=== PATIENT | male | born 1950 | race Caucasian/White ===

== ENCOUNTER 2016-08-09 16:23 | Inpatient (IN) | payer MEDICARE, MEDICAID ==
[~2016-08-09] VITALS: Ht 157.5 cm; Wt 46.7 kg
[~2016-08-09 16:23] MED LIST: DIVA500T52 PO; OLAN5TAB2 PO; OMEP20 PO; VITAD1000 PO
[2016-08-09 16:57] LABS: BASOPHILS % (AUTO) 1.2 % (0.0-2.0); HEMATOCRIT 42.3 % (41-53); HEMOGLOBIN 13.8 g/dL (13.5-17.5); LYMPHOCYTES # (AUTO) 2.6 K/uL (1.0-4.8); LYMPHOCYTES % (AUTO) 48.2 % (22.0-44.0); MEAN CORPUSCULAR HEMOGLOBIN 29.7 pg (26.0-34.0); MEAN CORPUSCULAR HGB CONC 32.7 G/dL (31.0-37.0); MEAN CORPUSCULAR VOLUME 91 fL (80-100); MONOCYTES # (AUTO) 0.5 K/uL (0.1-1.0); NEUTROPHILS % (AUTO) 36.6 % (40.0-70.0); PLATELET COUNT (AUTO) 297 K/uL (150-450); RED BLOOD CELL COUNT(AUTO) 4.65 MIL/uL (4.50-5.90); RED CELL DISTRIBUTION WIDTH 14.9 % (11.5-14.5); WHITE BLOOD COUNT (AUTO) 5.4 K/uL (4.5-11.0)
[2016-08-09 17:12] LABS: ANION GAP 12 mmol/L (8-16); CALCIUM, TOTAL 9.3 mg/dL (8.8-10.5); CARBON DIOXIDE 26 mmol/L (22-29); CHLORIDE 104 mmol/L (98-107); CREATININE 0.69 mg/dL (0.60-1.30); GLOMERULAR FILTR. RATE CALC > 60 mL/min (>60); POTASSIUM 3.7 mmol/L (3.5-5.1); SODIUM SERUM 142 mmol/L (136-145); UREA NITROGEN, BLOOD 10 mg/dL (7-18)
[2016-08-09 17:15] LABS: ALANINE AMINOTRANSFERASE 31 U/L (12-78); ALBUMIN 3.8 g/dL (3.4-5.0); ASPARTATE AMINOTRANSFERASE 21 U/L (15-37); BILIRUBIN,TOTAL 0.3 mg/dL (0.1-1.0); TOTAL PROTEIN, SERUM 7.7 g/dL (6.4-8.2)
[2016-08-09 17:26] LABS: APPEARANCE,URINE CLEAR (CLEAR); GLUCOSE, URINE (UA) NEGATIVE (NEGATIVE); KETONES,URINE NEGATIVE (NEGATIVE); LEUKOCYTE ESTERASE ,URINE NEGATIVE (NEGATIVE); PH,URINE 6.5 (5.0-8.0); PROTEIN,URINE NEGATIVE (NEGATIVE)
[2016-08-09 17:27] LABS: ADD UA MICROSCOPIC NO; OCCULT BLOOD,URINE NEGATIVE (NEGATIVE)
[2016-08-09 17:29] LABS: VALPROIC ACID < 3 mcg/mL (50-100)
[2016-08-09] MEDS ORDERED: HALOPERIDOL 5 MG TABLET PO PRN (19:00)
[2016-08-09] MEDS ORDERED: ZOLPIDEM TARTRATE 10 MG TABLET PO PRN (19:00)
[2016-08-09] MEDS ORDERED: LORazepam 2 MG TABLET PO PRN (19:00)
[2016-08-09 21:40] VITALS: BP 131/82
[2016-08-09] MEDS: DIVALPROEX SODIUM 500 MG ER TABLET PO SCH (21:48)
[2016-08-09] MEDS: OLANZapine 5 MG TABLET PO SCH (21:48)
[2016-08-10 01:55] VITALS: BP 112/73
[2016-08-10 08:08] VITALS: BP 123/66
[2016-08-10] MEDS: NICOTINE 14 MG/24 HOUR PATCH TD SCH (09:36)
[2016-08-10] MEDS: OMEPRAZOLE 20 MG CAPSULE PO SCH (09:36)
[2016-08-10] MEDS: OLANZapine 5 MG TABLET PO SCH ×2 (09:36→20:33)
[2016-08-10 16:08] VITALS: BP_SYST 91
[2016-08-10] MEDS: DIVALPROEX SODIUM 500 MG ER TABLET PO SCH (20:33)
[2016-08-11 06:16] VITALS: BP 111/73
[2016-08-11 08:07] VITALS: BP 113/79
[2016-08-11] MEDS: OLANZapine 5 MG TABLET PO SCH ×2 (09:00→20:43)
[2016-08-11] MEDS: OMEPRAZOLE 20 MG CAPSULE PO SCH (09:00)
[2016-08-11] MEDS: NICOTINE 14 MG/24 HOUR PATCH TD SCH (09:01)
[2016-08-11 16:07] VITALS: BP 114/67
[2016-08-11] MEDS: DIVALPROEX SODIUM 500 MG ER TABLET PO SCH (20:43)
[2016-08-12 06:30] VITALS: BP 107/76
[2016-08-12 08:16] VITALS: BP 116/76
[2016-08-12] MEDS: OLANZapine 5 MG TABLET PO SCH ×2 (09:05→20:22)
[2016-08-12] MEDS: NICOTINE 14 MG/24 HOUR PATCH TD SCH (09:05)
[2016-08-12] MEDS: OMEPRAZOLE 20 MG CAPSULE PO SCH (09:05)
[2016-08-12] MEDS ORDERED: HYDROCORTISONE 2.5% 30 GM OINTMENT TP PRN (09:30)
[2016-08-12 16:00] VITALS: BP 108/60
[2016-08-12] MEDS: DIVALPROEX SODIUM 500 MG ER TABLET PO SCH (20:16)
[2016-08-13 04:48] VITALS: BP 110/73
[2016-08-13 08:16] VITALS: BP 99/76
[2016-08-13] MEDS: NICOTINE 14 MG/24 HOUR PATCH TD SCH (09:14)
[2016-08-13] MEDS: OLANZapine 5 MG TABLET PO SCH ×2 (09:14→20:16)
[2016-08-13] MEDS: OMEPRAZOLE 20 MG CAPSULE PO SCH (09:14)
[2016-08-13 11:04] VITALS: BP 101/74
[2016-08-13 12:20] LABS: HEPATITIS Bs ANTIGEN SCREEN P Negative (Negative); HEPATITIS C AB SCREEN <0.1 s/co ratio (0.0-0.9)
[2016-08-13 18:54] VITALS: BP 111/73
[2016-08-13] MEDS: DIVALPROEX SODIUM 500 MG ER TABLET PO SCH (20:16)
[2016-08-14 02:35] VITALS: BP 113/77
[2016-08-14 08:23] VITALS: BP 135/84
[2016-08-14] MEDS: OLANZapine 5 MG TABLET PO SCH ×2 (08:34→20:31)
[2016-08-14] MEDS: OMEPRAZOLE 20 MG CAPSULE PO SCH (08:34)
[2016-08-14] MEDS: NICOTINE 14 MG/24 HOUR PATCH TD SCH (08:35)
[2016-08-14 16:05] VITALS: BP 111/63
[2016-08-14] MEDS: DIVALPROEX SODIUM 500 MG ER TABLET PO SCH (20:31)
[2016-08-15 04:49] VITALS: BP 133/83
[2016-08-15 08:10] VITALS: BP 115/67
[2016-08-15] MEDS: OMEPRAZOLE 20 MG CAPSULE PO SCH (08:16)
[2016-08-15] MEDS: OLANZapine 5 MG TABLET PO SCH (08:16)
[2016-08-15] MEDS: NICOTINE 14 MG/24 HOUR PATCH TD SCH (08:17)
[2016-08-15 16:00] VITALS: BP 108/69
[2016-08-15] MEDS: DIVALPROEX SODIUM 500 MG ER TABLET PO SCH (20:01)
[2016-08-15] MEDS: OLANZapine 10 MG TABLET PO SCH (20:01)
[2016-08-16 01:58] VITALS: BP 104/62
[2016-08-16 08:19] VITALS: BP 100/69
[2016-08-16] MEDS: OMEPRAZOLE 20 MG CAPSULE PO SCH (08:28)
[2016-08-16] MEDS: NICOTINE 14 MG/24 HOUR PATCH TD SCH (08:29)
[2016-08-16] MEDS: OLANZapine 5 MG TABLET PO SCH (08:29)
[2016-08-16] MEDS: MULTIVITAMINS WITH MINERALS, THERAPEUTIC TABLET PO SCH (11:40)
[2016-08-16 16:33] VITALS: BP 90/60
[2016-08-16] MEDS: OLANZapine 10 MG TABLET PO SCH (20:47)
[2016-08-16] MEDS: DIVALPROEX SODIUM 500 MG ER TABLET PO SCH (20:47)
[2016-08-17 00:53] VITALS: BP 107/78
[2016-08-17 08:10] VITALS: BP 100/64
[2016-08-17] MEDS: OLANZapine 5 MG TABLET PO SCH (08:39)
[2016-08-17] MEDS: OMEPRAZOLE 20 MG CAPSULE PO SCH (08:39)
[2016-08-17] MEDS: MULTIVITAMINS WITH MINERALS, THERAPEUTIC TABLET PO SCH (08:39)
[2016-08-17] MEDS: NICOTINE 14 MG/24 HOUR PATCH TD SCH (08:40)
[2016-08-17 16:15] VITALS: BP 115/60
[2016-08-17] MEDS: OLANZapine 10 MG TABLET PO SCH (20:59)
[2016-08-17] MEDS: DIVALPROEX SODIUM 500 MG ER TABLET PO SCH (20:59)
[2016-08-18 00:10] VITALS: BP 112/66
[2016-08-18] MEDS: MULTIVITAMINS WITH MINERALS, THERAPEUTIC TABLET PO SCH (08:32)
[2016-08-18] MEDS: OLANZapine 5 MG TABLET PO SCH (08:32)
[2016-08-18] MEDS: NICOTINE 14 MG/24 HOUR PATCH TD SCH (08:32)
[2016-08-18] MEDS: OMEPRAZOLE 20 MG CAPSULE PO SCH (08:32)
[2016-08-18 08:36] VITALS: BP 106/58
[2016-08-18 16:07] VITALS: BP 106/69
[2016-08-18] MEDS: DIVALPROEX SODIUM 500 MG ER TABLET PO SCH (20:43)
[2016-08-18] MEDS: OLANZapine 10 MG TABLET PO SCH (20:47)
[2016-08-19 02:24] VITALS: BP 108/72
[2016-08-19 08:35] VITALS: BP 102/61
[2016-08-19] MEDS: OMEPRAZOLE 20 MG CAPSULE PO SCH (08:45)
[2016-08-19] MEDS: MULTIVITAMINS WITH MINERALS, THERAPEUTIC TABLET PO SCH (08:45)
[2016-08-19] MEDS: NICOTINE 14 MG/24 HOUR PATCH TD SCH (08:45)
[2016-08-19] MEDS: OLANZapine 5 MG TABLET PO SCH (08:45)
[2016-08-19 16:06] VITALS: BP 104/65
[2016-08-19] MEDS: DIVALPROEX SODIUM 500 MG ER TABLET PO SCH (20:23)
[2016-08-19] MEDS: OLANZapine 10 MG TABLET PO SCH (20:23)
[2016-08-20 06:34] VITALS: BP 101/60
[2016-08-20 08:10] VITALS: BP 109/67
[2016-08-20] MEDS: OLANZapine 5 MG TABLET PO SCH (08:52)
[2016-08-20] MEDS: MULTIVITAMINS WITH MINERALS, THERAPEUTIC TABLET PO SCH (08:52)
[2016-08-20] MEDS: NICOTINE 14 MG/24 HOUR PATCH TD SCH (08:52)
[2016-08-20] MEDS: OMEPRAZOLE 20 MG CAPSULE PO SCH (08:52)
[2016-08-20 16:00] VITALS: BP 108/69
[2016-08-20] MEDS: DIVALPROEX SODIUM 500 MG ER TABLET PO SCH (20:52)
[2016-08-20] MEDS: OLANZapine 10 MG TABLET PO SCH (20:52)
[2016-08-21 00:09] VITALS: BP 109/68
[2016-08-21 08:30] VITALS: BP 110/70
[2016-08-21] MEDS: OLANZapine 5 MG TABLET PO SCH (09:37)
[2016-08-21] MEDS: OMEPRAZOLE 20 MG CAPSULE PO SCH (09:37)
[2016-08-21] MEDS: MULTIVITAMINS WITH MINERALS, THERAPEUTIC TABLET PO SCH (09:37)
[2016-08-21] MEDS: NICOTINE 14 MG/24 HOUR PATCH TD SCH (09:37)
[2016-08-21 16:21] VITALS: BP 101/62
[2016-08-21] MEDS: OLANZapine 10 MG TABLET PO SCH (20:24)
[2016-08-21] MEDS: DIVALPROEX SODIUM 500 MG ER TABLET PO SCH (20:25)
[2016-08-22 06:42] VITALS: BP 102/65
[2016-08-22 08:36] VITALS: BP 102/59
[2016-08-22] MEDS: NICOTINE 14 MG/24 HOUR PATCH TD SCH (08:57)
[2016-08-22] MEDS: OMEPRAZOLE 20 MG CAPSULE PO SCH (08:57)
[2016-08-22] MEDS: MULTIVITAMINS WITH MINERALS, THERAPEUTIC TABLET PO SCH (08:57)
[2016-08-22] MEDS: OLANZapine 5 MG TABLET PO SCH (08:57)
[2016-08-22] MEDS ORDERED: OLAN10TA3 PO (11:28)
[2016-08-22] MEDS ORDERED: OLAN5TAB2 PO (11:28)
== END 2016-08-22 13:35 | disposition home or self-care (01) | DRG 885 ==
LOC: EMS 16:31 → B2X 19:10
DX: F25.1 Schizoaffective disorder, depressive type (principal); R45.851 Suicidal ideations; F19.20 Other psychoactive substance dependence, uncomplicated; F15.90 Other stimulant use, unspecified, uncomplicated; G40.909 Epilepsy, unspecified, not intractable, without status epilepticus; K21.9 Gastro-esophageal reflux disease without esophagitis; J44.9 Chronic obstructive pulmonary disease, unspecified; F10.10 Alcohol abuse, uncomplicated; L30.9 Dermatitis, unspecified; E55.9 Vitamin D deficiency, unspecified; F17.210 Nicotine dependence, cigarettes, uncomplicated; Y90.4 Blood alcohol level of 80-99 mg/100 ml; F12.90 Cannabis use, unspecified, uncomplicated; D64.9 Anemia, unspecified; Z88.6 Allergy status to analgesic agent; Z59.0 Homelessness; Z91.5 Personal history of self-harm; Z71.41 Alcohol abuse counseling and surveillance of alcoholic; Z71.51 Drug abuse counseling and surveillance of drug abuser; Z71.6 Tobacco abuse counseling; Z79.899 Other long term (current) drug therapy
CPT/HCPCS: 80074; 99285; 99406; G0480

== ENCOUNTER 2016-09-06 16:08 | Inpatient (IN) | payer MEDICARE, MEDICAID ==
[~2016-09-06] VITALS: Ht 157.5 cm; Wt 49.1 kg
[~2016-09-06 16:08] MED LIST changes: +OLAN10TA3 PO; -VITAD1000 PO
[2016-09-06] MEDS ORDERED: LORazepam 2 MG TABLET PO PRN (16:30)
[2016-09-06] MEDS ORDERED: HALOPERIDOL 5 MG TABLET PO PRN (16:30)
[2016-09-06] MEDS ORDERED: ZOLPIDEM TARTRATE 10 MG TABLET PO PRN (16:30)
[2016-09-06 17:10] VITALS: BP 107/68
[2016-09-06] MEDS ORDERED: PNEUMOCOCCAL VACCINE POLYVALENT 0.5 ML VIAL [PPSV23] IM ONE (19:00)
[2016-09-06] MEDS: DIVALPROEX SODIUM 500 MG ER TABLET PO SCH (20:40)
[2016-09-06] MEDS: OLANZapine 10 MG TABLET PO SCH (20:41)
[2016-09-07 06:43] VITALS: BP 103/65
[2016-09-07 08:19] LABS: HEMOGLOBIN A1C 6.2 % (4.5-6.2)
[2016-09-07 08:28] LABS: BASOPHILS % (AUTO) 1.3 % (0.0-2.0); EOSINOPHILS % (AUTO) 6.9 % (1.0-6.0); HEMATOCRIT 39.1 % (41-53); HEMOGLOBIN 12.8 g/dL (13.5-17.5); LYMPHOCYTES # (AUTO) 2.2 K/uL (1.0-4.8); LYMPHOCYTES % (AUTO) 45.2 % (22.0-44.0); MEAN CORPUSCULAR HEMOGLOBIN 30.5 pg (26.0-34.0); MEAN CORPUSCULAR HGB CONC 32.8 G/dL (31.0-37.0); MEAN CORPUSCULAR VOLUME 93 fL (80-100); MONOCYTES # (AUTO) 0.3 K/uL (0.1-1.0); MONOCYTES % (AUTO) 7.2 % (2.0-9.0); NEUTROPHILS # (AUTO) 1.9 K/uL (1.8-7.7); NEUTROPHILS % (AUTO) 39.4 % (40.0-70.0); PLATELET COUNT (AUTO) 312 K/uL (150-450); RED CELL DISTRIBUTION WIDTH 15.1 % (11.5-14.5); WHITE BLOOD COUNT (AUTO) 4.8 K/uL (4.5-11.0)
[2016-09-07 08:30] LABS: ALANINE AMINOTRANSFERASE 30 U/L (12-78); ANION GAP 6 mmol/L (8-16); ASPARTATE AMINOTRANSFERASE 16 U/L (15-37); BILIRUBIN,TOTAL 0.4 mg/dL (0.1-1.0); CALCIUM, TOTAL 8.4 mg/dL (8.8-10.5); CARBON DIOXIDE 28 mmol/L (22-29); CHLORIDE 106 mmol/L (98-107); CHOL/HDL RATIO 1.9 (4.2-7.3); GLOMERULAR FILTR. RATE CALC > 60 mL/min (>60); POTASSIUM 4.1 mmol/L (3.5-5.1); SODIUM SERUM 140 mmol/L (136-145); THYROID STIMULATING HORMONE 0.34 uIU/mL (0.36-3.74); TOTAL PROTEIN, SERUM 6.3 g/dL (6.4-8.2); UREA NITROGEN, BLOOD 17 mg/dL (7-18)
[2016-09-07] MEDS: PANTOPRAZOLE SODIUM 40 MG DR TABLET PO SCH (09:05)
[2016-09-07 09:49] VITALS: BP 95/45
[2016-09-07 16:20] VITALS: BP 106/66
[2016-09-07] MEDS: OLANZapine 10 MG TABLET PO SCH (20:44)
[2016-09-07] MEDS: DIVALPROEX SODIUM 500 MG ER TABLET PO SCH (20:44)
[2016-09-08 00:15] VITALS: BP 101/56
[2016-09-08 08:41] VITALS: BP 119/75
[2016-09-08] MEDS: PANTOPRAZOLE SODIUM 40 MG DR TABLET PO SCH (08:51)
[2016-09-08] MEDS ORDERED: ALBUTEROL SULFATE HFA 90 MCG/PUFF 8 GM INHALER IH PRN (11:00)
[2016-09-08 16:12] VITALS: BP 104/64
[2016-09-08] MEDS: OLANZapine 10 MG TABLET PO SCH (20:39)
[2016-09-08] MEDS: DIVALPROEX SODIUM 500 MG ER TABLET PO SCH (20:39)
[2016-09-09 00:56] VITALS: BP 111/60
[2016-09-09 08:21] VITALS: BP 101/61
[2016-09-09] MEDS: PANTOPRAZOLE SODIUM 40 MG DR TABLET PO SCH (08:34)
[2016-09-09 16:00] VITALS: BP 113/66
[2016-09-09] MEDS: DIVALPROEX SODIUM 500 MG ER TABLET PO SCH (20:41)
[2016-09-09] MEDS: OLANZapine 10 MG TABLET PO SCH (20:42)
[2016-09-10 00:15] VITALS: BP 120/78
[2016-09-10 08:02] VITALS: BP 97/65
[2016-09-10] MEDS: PANTOPRAZOLE SODIUM 40 MG DR TABLET PO SCH (08:14)
[2016-09-10 16:15] VITALS: BP 116/67
[2016-09-10] MEDS: OLANZapine 10 MG TABLET PO SCH (20:43)
[2016-09-10] MEDS: DIVALPROEX SODIUM 500 MG ER TABLET PO SCH (20:43)
[2016-09-11 05:18] VITALS: BP 110/60
[2016-09-11 08:11] VITALS: BP 110/51
[2016-09-11] MEDS: PANTOPRAZOLE SODIUM 40 MG DR TABLET PO SCH (09:46)
[2016-09-11 16:40] VITALS: BP 109/59
[2016-09-11] MEDS: DIVALPROEX SODIUM 500 MG ER TABLET PO SCH (20:46)
[2016-09-11] MEDS: OLANZapine 10 MG TABLET PO SCH (20:46)
[2016-09-12 07:22] VITALS: BP 112/63
[2016-09-12] MEDS: PANTOPRAZOLE SODIUM 40 MG DR TABLET PO SCH (08:30)
[2016-09-12 08:51] VITALS: BP 103/57
[2016-09-12 16:13] VITALS: BP 101/69
[2016-09-12] MEDS: DIVALPROEX SODIUM 500 MG ER TABLET PO SCH (20:48)
[2016-09-12] MEDS: OLANZapine 10 MG TABLET PO SCH (20:48)
[2016-09-13 00:45] VITALS: BP 111/75
[2016-09-13] MEDS: PANTOPRAZOLE SODIUM 40 MG DR TABLET PO SCH (08:07)
[2016-09-13 08:51] VITALS: BP 106/84
[2016-09-13] MEDS ORDERED: BISACODYL 5 MG EC TABLET PO PRN (09:45)
[2016-09-13 16:18] VITALS: BP 104/66
[2016-09-13] MEDS: OLANZapine 10 MG TABLET PO SCH (20:36)
[2016-09-13] MEDS: DIVALPROEX SODIUM 500 MG ER TABLET PO SCH (20:37)
[2016-09-14 01:27] VITALS: BP 109/63
[2016-09-14 08:28] VITALS: BP 107/66
[2016-09-14] MEDS: PANTOPRAZOLE SODIUM 40 MG DR TABLET PO SCH (09:46)
[2016-09-14 16:10] VITALS: BP 113/69
[2016-09-14] MEDS: OLANZapine 10 MG TABLET PO SCH (20:39)
[2016-09-14] MEDS: DIVALPROEX SODIUM 500 MG ER TABLET PO SCH (20:39)
[2016-09-15 01:14] VITALS: BP 103/60
[2016-09-15 08:12] VITALS: BP 117/73
[2016-09-15] MEDS: PANTOPRAZOLE SODIUM 40 MG DR TABLET PO SCH (09:43)
[2016-09-15] MEDS ORDERED: ACETAMINOPHEN 325 MG TABLET PO PRN (11:15)
[2016-09-15 16:18] VITALS: BP 105/63
[2016-09-15] MEDS: OLANZapine 10 MG TABLET PO SCH (20:37)
[2016-09-15] MEDS: DIVALPROEX SODIUM 500 MG ER TABLET PO SCH (20:37)
[2016-09-16 06:27] VITALS: BP 116/60
[2016-09-16] MEDS: PANTOPRAZOLE SODIUM 40 MG DR TABLET PO SCH (08:45)
[2016-09-16 09:33] VITALS: BP 107/60
[2016-09-16 16:20] VITALS: BP 106/65
[2016-09-16] MEDS: DIVALPROEX SODIUM 500 MG ER TABLET PO SCH (20:47)
[2016-09-16] MEDS: OLANZapine 10 MG TABLET PO SCH (20:47)
[2016-09-17 06:40] VITALS: BP 106/60
[2016-09-17 08:45] VITALS: BP 104/62
[2016-09-17] MEDS: PANTOPRAZOLE SODIUM 40 MG DR TABLET PO SCH (09:10)
[2016-09-17 16:24] VITALS: BP 127/62
[2016-09-17] MEDS: DIVALPROEX SODIUM 500 MG ER TABLET PO SCH (20:20)
[2016-09-17] MEDS: OLANZapine 10 MG TABLET PO SCH (20:20)
[2016-09-18 06:16] VITALS: BP 103/65
[2016-09-18 08:10] VITALS: BP 101/61
[2016-09-18] MEDS: PANTOPRAZOLE SODIUM 40 MG DR TABLET PO SCH (09:07)
[2016-09-18 16:15] VITALS: BP 109/61
[2016-09-18] MEDS: DIVALPROEX SODIUM 500 MG ER TABLET PO SCH (20:41)
[2016-09-18] MEDS: OLANZapine 10 MG TABLET PO SCH (20:41)
[2016-09-19 03:00] VITALS: BP 105/66
[2016-09-19 08:12] VITALS: BP 110/66
[2016-09-19] MEDS: PANTOPRAZOLE SODIUM 40 MG DR TABLET PO SCH (09:10)
== END 2016-09-19 15:45 | disposition home or self-care (01) | DRG 885 ==
LOC: B3A 16:32 → B2X 17:53
DX: F25.1 Schizoaffective disorder, depressive type (principal); R45.851 Suicidal ideations; E46 Unspecified protein-calorie malnutrition; F19.20 Other psychoactive substance dependence, uncomplicated; Z68.1 Body mass index [BMI] 19.9 or less, adult; G40.909 Epilepsy, unspecified, not intractable, without status epilepticus; J43.9 Emphysema, unspecified; Z91.14 Patient's other noncompliance with medication regimen; K21.9 Gastro-esophageal reflux disease without esophagitis; D64.9 Anemia, unspecified; Z88.6 Allergy status to analgesic agent; J44.9 Chronic obstructive pulmonary disease, unspecified; I95.9 Hypotension, unspecified; E05.90 Thyrotoxicosis, unspecified without thyrotoxic crisis or storm; K59.00 Constipation, unspecified; S80.00XA Contusion of unspecified knee, initial encounter; W22.8XXA Striking against or struck by other objects, initial encounter; Y92.230 Patient room in hospital as the place of occurrence of the external cause
CPT/HCPCS: 83036; 84439; 84443; 87081